=== PATIENT | male | born 1985 | race Caucasian/White ===

== ENCOUNTER 2025-01-30 20:06 | Emergency (ER) | payer OTHER, SELFPAY ==
[2025-01-30 20:30] VITALS: BP 135/92; PULSE 64; RESP 18; TEMP 36.6; O2SAT 97; BMI 25.8
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
--- OUTSIDE RECORDS SUMMARY | 2025-01-30 21:05 | XMS_ITS | Encounter Summary ---
Author Organization [facility] Address [address] [place] [address] Care Team Providers Care Group Leader Semiconductor Testing Name Role Phone Needs Pcp, Assignment Primary Care Provider [phone] Reason for Visit * Reason Onset Date Comments Refill 11/26/2024 propranolol (IND ERAL) 10 MG tablet Encounter Details Date Type Department Care Team (Late st Contact Info) Description 11/26/2024 Refill [facility] Medicine [address] [place], [place] [id number] [place] Rob[place] [id number] [place] [id number] Refill (propranolol (INDERAL) 10 MG tablet) Social History Tobacco Use Types Packs/Day Years Used Date Smoking Tobacco: Former Smokeless Tobacco: Never Alcohol Use Standard Drinks/Week Comments Not Currently 0 (1 standard drink = 0.6 oz pur e alcohol) PHQ-2 Answer Date Recorded PHQ-2 Score 0 08/14/2024 Sex and Gender Information Value Date Recorded Sex Assigned at Not on file Legal Sex Male 2:23 PM CDT Gender Identity Not on file Sexual Orientation Not on file documented as of this encounter Nursing Notes * Joan Lizarraga Xrwcomm - 11/26/2024 12:32 PM CDT propranolol (INDERAL) 10 MG tablet Medication started: 08/14/2024 Last ordered by CLAUDY ROBLES N: 08/14/2024 (104 days ago) QTY: 90, Refills: 3, Sig: take 1-2 tablets (10-20 mg) by mouth three times a day as needed. indications: feeling anxious, palpitations (unchanged) -> Refill x 9 months (until due for an office visit) -> Calculate the quantity and number of refills manually. Last qualifying visit: 08/14/2024 (with CLAUDY ROBLES) Next scheduled visit: None [facility] Embedded Refills, Reference: [id number], 11/26/2024 12:32:03 PM CDT, Pool: [facility]AC[facility] Refill Centralized Services - Primary Care [[id number]] ([id number]) * Joan Lizarraga - 11/26/2024 10:46 AM CDT The patient chart could not be locked at 11/26/2024 10:46 AM by [email or web address] in order to process thisrefill request. Please try re-routing to attempt to retry processing through [email or web address]. * Delmy Cedeno - 11/26/2024 10:44 AM CDT Requested Prescriptions Pending Prescriptions Disp Refills propranolol (INDERAL) 10 MG tablet 90 Tablet 3 Sig: Take 1-2 Tablets (10-20 mg) by mouth three times a day as needed. Indications: Feeling Anxious, palpitations RECEIVED FAX FROM PHARMACY REQUESTING A NEW 90 DAY SCRIPT FOR MEDICATION. PATIENT WAS LAST SEEN WITH ON 08/14/24 NO FUTURE APPOINTMENT HAS BEEN MADE TO SEE PROVIDER. documented in this encounter Plan of Treatment Upcoming Encounters Date Type Department Care Team (Late st Contact Info) Description 05/07/2025 1:00 PM ROLLER PRINT TENDER Telemedicine Sexual Medicine at [facility] [address] [place] [address] Mele Barrios, PAMorganC [address] [facility] [address] [place], [place] [id number] documented as of this encounter Visit Diagnoses Diagnosis Opioid withdrawal (HRC) Drug withdrawal documented in this encounter Care Teams Group Leader Semiconductor Testing Relationship Specialty Start Date End Date Needs Pcp, Assignment [place], [place] [address] PCP - General 05/17/23 documented as of this encounter
--- OUTSIDE RECORDS SUMMARY | 2025-01-30 21:05 | XMS_ITS | Encounter Summary ---
Author Organization [facility] Address [address] [place] [address] Care Team Providers Care Repair Welder Name Role Phone Needs Pcp, Assignment Primary Care Provider [phone] Reason for Visit * Reason Comments Refill testosterone cypiona te (DEPO-TESTOSTERONE) 200 MG/ML injection [Pharmacy Med Name: TESTOSTERONE CYP 200MG/ML SDV 1ML] Encounter Details Date Type Department Care Team (Late st Contact Info) Description 01/14/2025 Refill Sexual Medicine at [facility] [address] [place], [place] [address] Diana Suazo, PAMorganC [address] [place], [place] [phone] Refill (testosterone cypionate (DEPO-TESTOSTERONE) 200 MG/ML injection [Pharmacy Med Name: TESTOSTERONE CYP 200MG/ML SDV 1ML]) Social History Tobacco Use Types Packs/Day Years [...] as of this encounter Nursing Notes * Sara Viera - 01/15/2025 3:23 PM CDT Labs not needed until April. Follow up scheduled for May. Last filled 11/26/2024. Requestingrefill. * Joan Lizarragawkarley - 01/14/2025 5:25 PM CDT testosterone cypionate (DEPO-TESTOSTERONE) 200 MG/ML injection [Pharmacy Med Name: TESTOSTERONE [id number]/ML SDV 1ML] Medication started: 03/22/2021 Last ordered by DIANA SUAZO: 11/26/2024 (49 days ago) QTY: 10, Refills: 0, Sig: inject 0.5 mlin the muscle one day a week (changed) -> Unable to determine if sig has changed, review required. -> Medication cannot be delegated. Last qualifying visit: 11/05/2024 (with DIANA SUAZO) Next scheduled visit: 05/07/2025 (with DIANA SUAZO) [facility] Embedded Refills, Reference: [id number], 01/14/2025 5:25:15 PM CDT, Pool: [facility] ([id number]) * Joan Lizarraga Xrwcomdottie - 01/14/2025 5:25 PM CDT No Careplan note found by [employer]. documented in this encounter Plan of Treatment Upcoming Encounters Date Type Department Care Team (Late st Contact Info) Description 05/07/2025 1:00 PM SIGN DESIGNER Telemedicine Sexual Medicine at [facility] [address] [place] [address] Diana Suazo, PAMorganC [address] [place], [place] [address] documented as of this encounter Visit Diagnoses Diagnosis Hypogonadism in male (HRC) Encounter for monitoring testosterone replacement therapy documented in this encounter Care Teams Repair Welder Relationship Specialty Start Date End Date Needs Pcp, [place] [address] PCP - General 05/17/23 documented as of this encounter
--- OUTSIDE RECORDS SUMMARY | 2025-01-30 21:05 | XMS_ITS | Encounter Summary ---
Author Organization [facility] Address [address] [place] [address] Care Team Providers Care Sugar Trucker Name Role Phone Needs Pcp, Assignment Primary Care Provider [phone] Reason for Visit * Reason Comments Med Change Request Encounter Details Date Type Department Care Team (Late st Contact Info) Description 01/16/2025 Telephone Sexual Medicine at [facility] [address] [place], [place] [phone] Mele Barrios PA-C [address] [place], [place] [phone] Med Change Request Social History Tobacco Use Types Packs/Day Years [...] encounter Nursing Notes * Sara Viera - 01/16/2025 8:23 AM CDT Testosterone cypionate 200mg/mL SDV 1mL not covered by patient's insurance. Pharmacy is requesting Depo testosterone inj as a substitute. Returned Fax. documented in this encounter Plan of Treatment Upcoming Encounters Date Type Department Care Team (Late st Contact Info) Description 05/07/2025 1:[address] MACHINERY INSPECTOR Telemedicine Sexual Medicine at [facility] [address] [place] [address] Mele Barrios, PAMorganC [address] [facility] [address] [place], [place] [address] documented as of this encounter Visit Diagnoses Not on filedocumented in this encounter Care Teams Sugar Trucker Relationship Specialty Start Date End Date Needs Pcp, Assignment [place], [place] [address] PCP - General 05/17/23 documented as of this encounter
--- OUTSIDE RECORDS SUMMARY | 2025-01-30 21:05 | XMS_ITS | Clinical Summary ---
Author Organization [facility] Address [address] [place] [address] Care Team Providers Care Relocation Counselor Name Role Phone Needs Pcp, Assignment Primary Care Provider [phone] Source Comments You are receiving this document as you are listed as the primary care provider,follow-up provider, or the patient has been referred to you for consultation.This is in compliance with the Medicare andMedicaid EHR Incentive Program,which states Providers who transition their patient to another setting of careor provider of care or refers their patient to another provider of care shouldprovide summary care record for each transition of care or referral. [facility] [employer] Allergies No known active allergies Medications Methadone HCl 10 MG/5ML solution Take 30 mL (60 mg) by mouth daily. Active Syringe, Disposable, 3 MLIndications:H ypogonadism in male ([facility]),Encounter for monitoring testosterone replacement therapy Use to inject testosterone once weekly. 100 Each 04/01/20 24 Active NEEDLE, DISP, 22 G (BD DISP NEEDLES) 22G X 1-/2Indicatio ns:Hypogonadism in male ([facility]),Encounter for monitoring testosterone replacement therapy Use to inject testosterone once weekly. 100 Each 04/01/20 24 Active NEEDLE, DISP, 18 G (BD DISP NEEDLES) 18G X 1-/2Indicatio ns:Hypogonadism in male ([facility]),Encounter for monitoring testosterone replacement therapy Use to draw testosterone from vial. 100 Each 04/01/20 24 Active propranolol (INDERAL) 10 MG tabletIndicatio ns:Anxiety,palp itations Take 1-2 Tablets (10-20 mg) by mouth three times a day as needed. Indications: Feeling Anxious, palpitations 90 Tablet 2 11/30/19 25 2025 Active testosterone cypionate (DEPO-TESTOSTER ONE) 200 MG/ML injectionIndica tions:Hypogonad ism in male ([facility]),Encounter for monitoring testosterone replacement therapy INJECT 100 MG IN THE MUSCLE ONE DAY A WEEK 10 mL 01/17/20 Active testosterone cypionate (DEPO-TESTOSTER ONE) 200 MG/ML injectionIndica tions:Hypogonad ism in male ([facility]),Encounter for monitoring testosterone replacement therapy INJECT 0.5 ML IN THE MUSCLE ONE DAY A WEEK 10 mL 11/27/19 25 2024 Discontinued Active Problems Problem Noted Date Diagnosed Date Hypogonadism in male 03/22/2021 History of opioid abuse 02/26/2021 Encounters Date Type Department Care Team Description 01/16/2025 Telephone Sexual Medicine at [place] [address] [place] [address] Mele Barrios PA-C Med Change Request 01/14/2025 Refill Sexual Medicine at [place] [address] [place] [address] Mele Barrios PA-C Refill (testosterone cypionate (DEPO-TESTOSTERONE) 200 MG/ML injection [Pharmacy Med Name: TESTOSTERONE CYP 200MG/ML SDV 1ML]) 11/27/2024 10:50 AM CDT Lab Visit [facility] [address] [place] [phone] Hypogonadism in male ([facility]); Encounter for monitoring testosterone replacement therapy 11/26/2024 Refill [facility] [address] [place] [address] Claudy Robles MD Refill (propranolol (INDERAL) 10 MG tablet) 11/25/2024 Refill Sexual Medicine at [place] [address] [place] [address] Barrios, Mele J, PA-C Refill (testosterone cypionate (DEPO-TESTOSTERONE) 200 MG/ML injection [Pharmacy Med Name: TESTOSTERONE CYP 200MG/ML SDV 1ML]) 11/05/2024 10:00 AM CDT Telemedicine Sexual Medicine at [facility] [address] [place] [address] Mele Barrios PA-C Hypogonadism in male (HRC) (Primary Dx); Encounter for monitoring testosterone replacement therapy; History of opioid abuse (HRC) from Last 3 Months Social History Tobacco Use Types Packs/Day Years Used Date Smoking Tobacco: Former Smokeless Tobacco: Never Tobacco Cessation:Counseling Given: Not Answered Alcohol Use Standard Drinks/Week Comments Not Currently 0 (1 standard drink = 0.6 oz pur e alcohol) PHQ-2 Answer Date Recorded PHQ-2 Score 0 08/14/2024 Sex and Gender Information Value Date Recorded Sex Assigned at Not on file Legal Sex Male 2:23 PM CDT Gender Identity Not on file Sexual Orientation Not on file Last Filed Vital Signs Vital Sign Reading Time Taken Comments Blood Pressure 117/81 12/20/2019 2:46 PM CDT Pulse 70 12/20/2019 2:46 PM CDT Temperature 36.2 C (97.1 F) 07/11/2020 9:34 AM COMBINATION TECHNICIAN Respiratory Rate 16 12/20/2019 2:46 PM CDT Oxygen Saturation 99% 12/20/2019 2:46 PM CDT Inhaled Oxygen Concentration - - Weight 115.7 kg (255 lb) 08/18/2021 7:25 AM CDT Height 182.9 cm (6') 08/18/2021 7:25 AM CDT Body Mass Index 34.58 08/18/2021 7:25 AM CDT Plan of Treatment Upcoming Encounters Date Type Department Care Team (Late st Contact Info) Description 05/07/2025 1:00 PM COMBINATION TECHNICIAN Telemedicine Sexual Medicine at [facility] [address] [place] [address] Mele Barrios PA-C [address] [place] [address] Health Maintenance Due Date Last Done Comments Hep C Screening (Preventive Services) 1986 HIV Screening (Preventive Services) 2002 Adult Preventive Visit 2004 DTaP/Tdap/Td Vaccine (1 - Tdap) 2005 HepB Vaccine (1) 2005 HPV Vaccine (1 - 3-dose SCDM series) 2013 Cholesterol 2021 COVID-19 Vaccine (3 - 2023-2 5 season) 2024 04/27/2021, 04/02/2021 Influenza Vaccine (#1) 2025 04/27/2019 Zoster/Shingles Vaccine (1 o f 2) 2036 HepA Vaccine Aged Out No longer eligi ble based on patient's age to complete this topic Hib Vaccine Aged Out No longer eligi ble based on patient's age to complete this topic IPV (Polio) Vaccine Aged Out No longe r eligible based on patient's age to complete this topic MCV4 Vaccine Aged Out No longer eligi ble based on patient's age to complete this topic Meningococcal B Vaccine Aged Out No l onger eligible based on patient's age to complete this topic Pneumococcal Vaccine Aged Out No long er eligible based on patient's age to complete this topic Procedures Procedure Name Priority Date/Time Associated Diagnosis Comments PROSTATIC SPECIFIC ANTIGEN(SCREEN) Routine 11/27/2024 10:33 AM CDT Hypogonadism in male ([facility]) Encounter for monitoring testosterone replacement therapy ESTRADIOL Routine 11/27/2024 10:33 AM CDT Hypogonadism in male ([facility]) Encounter for monitoring testosterone replacement therapy HEMATOCRIT, BLOOD Routine 11/27/2024 10: 33 AM CDT Hypogonadism in male ([facility]) Encounter for monitoring testosterone replacement therapy HEMOGLOBIN, BLOOD Routine 11/27/2024 10: 33 AM CDT Hypogonadism in male ([facility]) Encounter for monitoring testosterone replacement therapy TESTOSTERONE,TOTAL ,FREE & BIOAVAILABLE, MALES Routine 11/27/2024 10:33 AM CDT Hypogonadism in male (HRC) Encounter for monitoring testosterone replacement therapy from Last 3 Months Results * (ABNORMAL) Testosterone,Free,Bioavailable,Total,Adult Males or Individuals on Testosterone Hormone Therapy (11/27/2024 10:33 AM CDT) Sex Hormone Binding Globulin Adult 21 13 - 74 nmol/L 11/28/2024 10:33 AM CDT [facility] Testosterone 508 200 - 745 ng/dL 11/28/2024 10:33 AM CDT [facility] Testosterone, Free 13.5(H) 3.1 - 12.8 ng/dL 11/28/2024 10:33 AM CDT [facility] Testosterone, Bioavailable 316.3(H) 71.7 - 300.0 ng/dL 11/28/2024 10:33 AM CDT [facility] Blood Venipuncture / Unknown 11/27/2024 10:33 AM CDT 11/27/2024 10:33 AM CDT us Mele Barrios PA-C LAB_1 Final Resu lt [facility] [address] * Prostatic Specific Antigen (Screen) (11/27/2024 10:33 AM CDT) Prostatic Specific Antigen 0.8 <=2.5 ng/mL 11/27/2024 3:26 PM CDT [facility] Comment:When the PSA value i s below the age-specific reference value but within 0.5 ng/mL, consider referral to urology. Blood Venipuncture / Unknown 11/27/2024 10:33 AM CDT 11/27/2024 10:33 AM CDT Narrative [facility] - 11/27/2024 3:26 PM CDT The Schrader PSA Chemiluminescent immunoassay is used. Results obtained with different test methods or kits cannot be used interchangeably. us Mele Barrios PA-C LAB_1 Final Resu lt Performing Organization Address City/[facility]/ZIP Co de Phone Number [facility] [address] [place], [place] [address] * Hematocrit, Blood (11/27/2024 10:33 AM CDT) HCT 45.5 38.8 - 50.0 % 11/27/2024 10:49 AM CDT [facility] Blood Venipuncture / Unknown 11/27/2024 10:33 AM CDT 11/27/2024 10:33 AM CDT Mele Barrios PA-C LAB_1 Final Resu Performing Organization Address [facility] de Phone Number [facility] [address] [place] [address] * Hemoglobin, Blood (11/27/2024 10:33 AM CDT) Hemoglobin 15.4 13.5 - 17.5 g/dL 11/27/2024 10:49 AM CDT [facility] Blood Venipuncture / Unknown 11/27/2024 10:33 AM CDT 11/27/2024 10:33 AM CDT Mele Barrios PA-C LAB_1 Final Resu Performing Organization Address [facility] de Phone Number [facility] [address] [place] [address] * Estradiol (11/27/2024 10:33 AM CDT) Estradiol 11 11 - 44 pg/mL 11/27/2024 3:26 PM CDT [facility] Blood Venipuncture / Unknown 11/27/2024 10:33 AM CDT 11/27/2024 10:33 AM CDT Narrative [facility] - 11/27/2024 3:26 PM CDT The drug mifepristone may cause interference with the estradiol assay leading to significant falsely elevated estradiol results for up to two weeks following last dose. Expected values for menstruating females Follicular phase: 21-251 pg/mL Mid cycle phase: 38-649 pg/mL Luteal phase: 21-312 pg/mL Expected values for post menopausal females On HRT: <10-144 pg/mL Not on HRT: <10-28 pg/mL us Mele Brad Barrios PA-C LAB_1 Final Resu lt [facility] [address] [place] [address], [facility] from Last 3 Months Insurance [id number] [address] [phone] [facility] Care Teams Relocation Counselor Relationship Specialty Start Date End Date Needs Pcp, [place] [address] PCP - General 05/17/23
== END 2025-01-30 21:05 | disposition home or self-care (01) ==
LOC: ED 21:03
PROVIDERS: Emergency Provider Student in an Organized Health Care Education/Training Program
DX: S16.1XXA Strain of muscle, fascia and tendon at neck level, initial encounter (principal); S60.022A Contusion of left index finger without damage to nail, initial encounter; V43.52XA Car driver injured in collision with other type car in traffic accident, initial encounter
CPT/HCPCS: 99282; 99283